=== PATIENT | male | born 1940 | race Caucasian/White ===

== ENCOUNTER 2018-02-07 11:06 | Inpatient (IN) | payer MEDICARE, OTHER ==
[2018-02-07 12:08] LABS: HEMATOCRIT 43.5 % (42.0-52.0); HEMOGLOBIN 14.8 g/dl (13.5-17.5); MEAN CORPUSCULAR HEMOGLOBIN 33.3 pg (27.0-33.0); MEAN CORPUSCULAR VOLUME 97.8 fl (80.0-96.0); PLATELET COUNT, AUTOMATED 180 10^3/uL (150-450); RED BLOOD COUNT 4.45 10^6/uL (4.30-6.10); RED CELL DISTRIBUTION WIDTH 13.1 % (11.5-14.5); WHITE BLOOD COUNT 8.5 10^3/uL (4.0-10.0)
[2018-02-07 12:38] LABS: AMPHETAMINES LEVEL URINE NEGATIVE (NEGATIVE); BARBITURATES URINE NEGATIVE (NEGATIVE); BENZODIAZEPINES URINE NEGATIVE (NEGATIVE); CANNABINOIDS URINE NEGATIVE (NEGATIVE); COCAINE METABOLITE URINE NEGATIVE (NEGATIVE); METHADONE URINE NEGATIVE (NEGATIVE); OPIATES URINE NEGATIVE (NEGATIVE); PHENCYCLIDINE URINE NEGATIVE (NEGATIVE)
[2018-02-07 12:56] LABS: ANION GAP 7 MEQ/L (8-16); BLOOD UREA NITROGEN 19 MG/DL (7-18); CALCIUM LEVEL 8.7 MG/DL (8.8-10.2); CARBON DIOXIDE LEVEL 27 MEQ/L (21-32); CHLORIDE LEVEL 99 MEQ/L (98-107); CREATININE FOR GFR 0.85 MG/DL (0.70-1.30); GLOMERULAR FILTRATION RATE > 60.0 (>42); GLUCOSE, FASTING 113 MG/DL (70-100); POTASSIUM SERUM 4.2 MEQ/L (3.5-5.1); SODIUM LEVEL 133 MEQ/L (136-145)
[2018-02-07 12:57] LABS: ALBUMIN 3.8 GM/DL (3.2-5.2); ALKALINE PHOSPHATASE 97 U/L (45-117); ALT/SGPT 42 U/L (12-78); AST/SGOT 31 U/L (7-37); BILIRUBIN,DIRECT 0.2 MG/DL (0.0-0.2); BILIRUBIN,TOTAL 0.7 MG/DL (0.2-1.0); TOTAL PROTEIN 6.9 GM/DL (6.4-8.2)
[2018-02-07 12:58] LABS: ACETAMINOPHEN LEVEL < 2.0 UG/ML (10.0-30.0); ALBUMIN/GLOBULIN RATIO 1.23 (1.00-1.93); ETHYL ALCOHOL (ETHANOL) < 0.003 % (0.000-0.010); SALICYLATE LEVEL < 1.7 MG/DL (5.0-30.0)
[2018-02-07] MEDS: LORazepam 2 MG TAB PO (18:47)
[2018-02-07] MEDS: ATORVASTATIN 20 MG TAB PO (21:00)
[2018-02-07] MEDS: METOPROLOL SUCC (TopROL XL) 50MG **XL** TAB PO (21:00)
[2018-02-07] MEDS ORDERED: MOM 30ML SUSPENSION UDC PO (21:45)
[2018-02-07] MEDS ORDERED: MAALOX 30 ML SUSP *UDC PO (21:45)
[2018-02-07] MEDS: ASPIRIN 325 MG TAB PO (21:45)
[2018-02-07] MEDS ORDERED: NITROGLYCERIN 0.4 MG SUBL TABLET SL (21:45)
[2018-02-07] MEDS ORDERED: ACETAMINOPHEN TAB 650MG DOSE (2X325MG) PO (21:45)
[2018-02-08] MEDS: INFLUENZA VIRUS VACCINE HIGH DOSE 0.5 ML SYRINGE (90662) IM (09:57)
[2018-02-08 11:58] LABS: KETONE, URINE AUTO RFX NEGATIVE (NEGATIVE); LEUKOCYTE ESTERASE UR AUTO RFX NEGATIVE (NEGATIVE); MUCUS, URINE RFX SMALL (NEGATIVE); NITRITE, URINE AUTO RFX NEGATIVE (NEGATIVE); RBC, URINE AUTO RFX 0 /HPF (0-3); SPECIFIC GRAVITY UR AUTO RFX 1.014 (1.002-1.035); SQUAM EPITHELIAL CELL UR AURFX 1 /HPF (0-6); WBC, URINE AUTO RFX 1 /HPF (0-3)
[2018-02-08] MEDS: ATORVASTATIN 20 MG TAB PO (21:47)
[2018-02-08] MEDS: QUEtiapine FUMARATE 50 MG TAB PO (21:47)
[2018-02-08] MEDS: METOPROLOL SUCC (TopROL XL) 50MG **XL** TAB PO (22:18)
[2018-02-09 08:22] LABS: ANION GAP 6 MEQ/L (8-16); BLOOD UREA NITROGEN 13 MG/DL (7-18); CALCIUM LEVEL 9.2 MG/DL (8.8-10.2); CARBON DIOXIDE LEVEL 27 MEQ/L (21-32); CHLORIDE LEVEL 102 MEQ/L (98-107); CREATININE FOR GFR 0.85 MG/DL (0.70-1.30); GLOMERULAR FILTRATION RATE > 60.0 (>42); GLUCOSE, FASTING 110 MG/DL (70-100); POTASSIUM SERUM 4.2 MEQ/L (3.5-5.1); SODIUM LEVEL 135 MEQ/L (136-145)
[2018-02-09] MEDS: QUEtiapine FUMARATE 100 MG TAB PO (21:38)
[2018-02-09] MEDS: ATORVASTATIN 20 MG TAB PO (21:38)
[2018-02-09] MEDS: METOPROLOL SUCC (TopROL XL) 50MG **XL** TAB PO (21:39)
[2018-02-10 08:55] LABS: ANION GAP 8 MEQ/L (8-16); BLOOD UREA NITROGEN 13 MG/DL (7-18); CALCIUM LEVEL 9.2 MG/DL (8.8-10.2); CARBON DIOXIDE LEVEL 27 MEQ/L (21-32); CHLORIDE LEVEL 98 MEQ/L (98-107); CREATININE FOR GFR 0.83 MG/DL (0.70-1.30); GLOMERULAR FILTRATION RATE > 60.0 (>42); GLUCOSE, FASTING 119 MG/DL (70-100); SODIUM LEVEL 133 MEQ/L (136-145)
[2018-02-10 14:44] LABS: VITAMIN B12 LEVEL 404 PG/ML (247-911)
[2018-02-10 14:44] LABS: FOLATE 8.4 NG/ML (>5.4)
[2018-02-10] MEDS: QUEtiapine FUMARATE 100 MG TAB PO (21:05)
[2018-02-10] MEDS: ATORVASTATIN 20 MG TAB PO (21:05)
[2018-02-10] MEDS: METOPROLOL SUCC (TopROL XL) 50MG **XL** TAB PO (21:06)
[2018-02-11] MEDS: QUEtiapine FUMARATE 50 MG TAB PO (09:02)
[2018-02-11] MEDS: ATORVASTATIN 20 MG TAB PO (21:05)
[2018-02-11] MEDS: METOPROLOL SUCC (TopROL XL) 50MG **XL** TAB PO (21:08)
[2018-02-11] MEDS: PILL CRUSHER/CUTTER 1 EACH XX (21:08)
[2018-02-12 00:06] LABS: Lyme Disease IgG/IgM Antibodie <0.91 ISR (0.00-0.90); Lyme Disease IgM Ab Quantitati <0.80 index (0.00-0.79)
[2018-02-12] MEDS: traZODone 50 MG TAB PO ×2 (01:16→21:35)
[2018-02-12] MEDS: ATORVASTATIN 20 MG TAB PO (21:35)
[2018-02-12] MEDS: METOPROLOL SUCC (TopROL XL) 50MG **XL** TAB PO (21:35)
[2018-02-12] MEDS: PILL CRUSHER/CUTTER 1 EACH XX (21:37)
[2018-02-13] MEDS: PILL CRUSHER/CUTTER 1 EACH XX (21:10)
[2018-02-13] MEDS: ATORVASTATIN 20 MG TAB PO (21:11)
[2018-02-13] MEDS: METOPROLOL SUCC (TopROL XL) 50MG **XL** TAB PO (21:11)
[2018-02-13] MEDS: traZODone 50 MG TAB PO (21:12)
[2018-02-14] MEDS: LORazepam 1 MG TAB PO (20:49)
[2018-02-14] MEDS: ATORVASTATIN 20 MG TAB PO (20:49)
[2018-02-14] MEDS: QUEtiapine FUMARATE 100 MG TAB PO (20:49)
[2018-02-14] MEDS: METOPROLOL SUCC (TopROL XL) 50MG **XL** TAB PO (20:50)
[2018-02-14] MEDS: traZODone 50 MG TAB PO (20:50)
[2018-02-15 11:36] LABS: KETONE, URINE AUTO RFX NEGATIVE (NEGATIVE); MUCUS, URINE RFX SMALL (NEGATIVE); NITRITE, URINE AUTO RFX NEGATIVE (NEGATIVE); RBC, URINE AUTO RFX 84 /HPF (0-3); SPECIFIC GRAVITY UR AUTO RFX 1.016 (1.002-1.035); SQUAM EPITHELIAL CELL UR AURFX 0 /HPF (0-6)
[2018-02-15 11:39] LABS: LEUKOCYTE ESTERASE UR AUTO RFX 3+ (NEGATIVE); WBC, URINE AUTO RFX TNTC /HPF (0-3)
[2018-02-15] MEDS: QUEtiapine FUMARATE 100 MG TAB PO (20:46)
[2018-02-15] MEDS: traZODone 50 MG TAB PO (20:46)
[2018-02-15] MEDS: METOPROLOL SUCC (TopROL XL) 50MG **XL** TAB PO (20:46)
[2018-02-15] MEDS: ATORVASTATIN 20 MG TAB PO (20:47)
[2018-02-16] MEDS: METOPROLOL SUCC (TopROL XL) 50MG **XL** TAB PO (21:20)
[2018-02-16] MEDS: ATORVASTATIN 20 MG TAB PO (21:21)
[2018-02-16] MEDS: QUEtiapine FUMARATE 100 MG TAB PO (21:21)
[2018-02-16] MEDS: CEFDINIR 300 MG CAP (OMNICEF) PO (21:21)
[2018-02-17] MEDS: CEFDINIR 300 MG CAP (OMNICEF) PO ×2 (09:34→20:46)
[2018-02-17] MEDS: QUEtiapine FUMARATE 100 MG TAB PO (20:45)
[2018-02-17] MEDS: METOPROLOL SUCC (TopROL XL) 50MG **XL** TAB PO (20:46)
[2018-02-17] MEDS: ATORVASTATIN 20 MG TAB PO (20:46)
[2018-02-18] MEDS: CEFDINIR 300 MG CAP (OMNICEF) PO (08:08)
== END 2018-02-18 14:00 | disposition home or self-care (01) | DRG 885 ==
LOC: M ED 11:06 → M ED INP 21:38 → M PSY 22:44
DX: F31.2 Bipolar disorder, current episode manic severe with psychotic features (principal); E87.1 Hypo-osmolality and hyponatremia; N39.0 Urinary tract infection, site not specified; I10 Essential (primary) hypertension; B96.1 Klebsiella pneumoniae [K. pneumoniae] as the cause of diseases classified elsewhere; I25.10 Atherosclerotic heart disease of native coronary artery without angina pectoris; E78.5 Hyperlipidemia, unspecified; Z95.5 Presence of coronary angioplasty implant and graft; Z79.82 Long term (current) use of aspirin; Z79.899 Other long term (current) drug therapy

== ENCOUNTER → 2018-06-15 | Outpatient (CLI) | payer MEDICARE, OTHER ==
[~2018-06-15] MED LIST: ASPI1TAB21 PO; ASPI81TA85 PO; ATOR80TA59 PO; CEFD300CAP PO; DIPH25CA PO; METO1TAB7 PO; NITR4TASL SL; QUET1TAB8 PO; TRAZO50TA PO
[2018-06-15 09:49] LABS: HEMATOCRIT 42.9 % (42.0-52.0); HEMOGLOBIN 14.8 g/dl (13.5-17.5); MEAN CORPUSCULAR HEMOGLOBIN 32.8 pg (27.0-33.0); MEAN CORPUSCULAR HGB CONC 34.5 g/dl (32.0-36.5); MEAN CORPUSCULAR VOLUME 95.1 fl (80.0-96.0); PLATELET COUNT, AUTOMATED 145 10^3/uL (150-450); RED BLOOD COUNT 4.51 10^6/uL (4.30-6.10); WHITE BLOOD COUNT 7.5 10^3/uL (4.0-10.0)
[2018-06-15 10:01] LABS: INR 0.98; PROTHROMBIN TIME 13.1 SECONDS (12.1-14.4)
--- NOTE | 2018-06-15 10:03 | REP ---
Chest two views HISTORY: Right knee arthritis Comparison: 01/18/2012 The lungs are clear. The heart is normal in size. The pulmonary vasculature is normal in appearance. The bony structure is intact. IMPRESSION: No acute disease. Electronically Signed by Estrada Aguilar MD 06/15/2018 09:56 A
[2018-06-15 10:18] LABS: ALBUMIN 3.9 GM/DL (3.2-5.2); ALT/SGPT 28 U/L (12-78); BILIRUBIN,TOTAL 0.9 MG/DL (0.2-1.0); BLOOD UREA NITROGEN 19 MG/DL (7-18); CALCIUM LEVEL 8.9 MG/DL (8.8-10.2); CARBON DIOXIDE LEVEL 28 MEQ/L (21-32); CHLORIDE LEVEL 106 MEQ/L (98-107); GLOMERULAR FILTRATION RATE > 60.0 (>42); GLUCOSE, FASTING 108 MG/DL (70-100); POTASSIUM SERUM 4.3 MEQ/L (3.5-5.1); SODIUM LEVEL 139 MEQ/L (136-145); TOTAL PROTEIN 6.6 GM/DL (6.4-8.2)
[2018-06-15 10:53] LABS: ERYTHROCYTE SEDIMENTATION RATE 6 mm/hr (0-20)
--- NOTE | 2018-06-16 11:53 | ECGEPIP ---
Stationary ECG Study [facility] Test Date: 2018-06-15 Pat Name: JUAN M YUAN Department: Room: - Gender: M Fisher Trammel Net: oly : 1940 Requested By: Raquel Jay @ [facility] Order Number: [id number] Reading MD: Gigi De Leon Measurements Intervals [place] Rate: 68 P: -2 LA: 134 QRS: 16 QRSD: 111 T: -19 QT: 401 QTc: 426 Interpretive Statements SINUS RHYTHM MODERATE INTRAVENTRICULAR CONDUCTION DELAY Inferior Q waves previously noted on 02-08-18 tracing Electronically Signed On 06-16-2018 11:52:30 EST by Gigi De Leon
--- NOTE | 2018-06-17 18:04 | HPE ---
DATE OF ADMISSION: 06/28/2018 CHIEF COMPLAINT: Right knee pain. HISTORY OF PRESENT ILLNESS: Charles is a pleasant 77-year-old male with progressively worsening right knee pain and stiffness. He has failed to improve with conservative treatment. He has elected for surgery for his continued symptoms. He has pain with weightbearing activities and his activities of daily living. X-rays of his knee are notable for advanced osteoarthritis of the right knee joint. He has consented for a right total knee arthroplasty by Dr. Pierre Hood. Medical optimization was performed by Dr. Grace. ALLERGIES: No known allergies. CURRENT MEDICATIONS: - atorvastatin 80 mg once a day - metoprolol 50 mg once per day - baby aspirin 81 mg baby once per day - Seroquel 100 mg a day - trazodone 50 mg at bedtime as needed - Nitrostat 0.40 mg when needed - Flonase [id number] as needed PAST MEDICAL HISTORY: Includes: 1. Coronary artery disease. 2. Hyperlipidemia. 3. Anxiety and depression. 4. Seasonal allergies. PAST SURGICAL HISTORY: Includes: 1. Left and right knee arthroscopies. 2. Left leg vein stripping. SOCIAL HISTORY: This gentleman is retired. Does not smoke. Rarely drinks. FAMILY HISTORY: Noncontributory. REVIEW OF SYSTEMS: This patient denies chest pain, heart palpitations, cough, wheezing, difficulty breathing, and shortness of breath. He denies abdominal pain, nausea, vomiting, diarrhea, or constipation. He denies recent upper respiratory infection or urinary tract infection symptoms. He does complain of persistent pain in his right knee. PHYSICAL EXAMINATION: GENERAL: He is a well-nourished, a well-developed in no acute distress, alert male patient. He walks with a moderate limp favoring his right lower extremity. Does not use assistive devices. VITAL SIGNS: He is 70-3/4 inches tall, weighs 254 pounds with a temperature of 97.6, blood pressure 121/77, pulse of 61, respirations of 16. NECK: Supple without adenopathy or jugular venous distension. There were no carotid bruits appreciated upon auscultation. LUNGS: Clear to auscultation without rales or wheeze throughout. HEART: Regular rate and rhythm. ABDOMEN: Bowel sounds were present. EXTREMITIES: Examination of the knee revealed intact skin. He had decreased range of motion secondary to pain and stiffness. The limb was neurovascularly intact. LABORATORY DATA: EKG showed sinus rhythm at 68 beats per minute. Chest x-ray showed no acute cardiopulmonary disease processes. Protime 13.1, INR 0.98. Glucose 108, BUN 19, creatinine 0.90, sodium 139, potassium 4.3. CBC showed a platelet count of 145, otherwise within normal limits. Sedimentation rate was 6. IMPRESSION: Symptomatic osteoarthritis of the right knee joint. PLAN: Consented for a right total knee arthroplasty by Dr. Pierre Hood.
== END ==
LOC: M LAB 09:08
PROVIDERS: ATTEND Orthopaedic Surgery
DX: Z01.818 Encounter for other preprocedural examination (principal); M17.11 Unilateral primary osteoarthritis, right knee; Z79.899 Other long term (current) drug therapy

== ENCOUNTER 2018-06-28 05:40 | Inpatient (IN) | payer MEDICARE, OTHER ==
--- NOTE | 2018-06-17 18:04 | HPE ---
DATE OF ADMISSION: 06/28/2018 CHIEF COMPLAINT: Right knee pain. HISTORY OF PRESENT ILLNESS: Charles is a pleasant 77-year-old male with progressively worsening right knee pain and stiffness. He has failed to improve with conservative treatment. He has elected for surgery for his continued symptoms. He has pain with weightbearing activities and his activities of daily living. X-rays of his knee are notable for advanced osteoarthritis of the right knee joint. He has consented for a right total knee arthroplasty by Dr. Pierre Hood. Medical optimization was performed by Dr. Grace. ALLERGIES: No known allergies. CURRENT MEDICATIONS: - atorvastatin 80 mg once a day - metoprolol 50 mg once per day - baby aspirin 81 mg baby once per day - Seroquel 100 mg a day - trazodone 50 mg at bedtime as needed - Nitrostat 0.40 mg when needed - Flonase [id number] as needed PAST MEDICAL HISTORY: Includes: 1. Coronary artery disease. 2. Hyperlipidemia. 3. Anxiety and depression. 4. Seasonal allergies. PAST SURGICAL HISTORY: Includes: 1. Left and right knee arthroscopies. 2. Left leg vein stripping. SOCIAL HISTORY: This gentleman is retired. Does not smoke. Rarely drinks. FAMILY HISTORY: Noncontributory. REVIEW OF SYSTEMS: This patient denies chest pain, heart palpitations, cough, wheezing, difficulty breathing, and shortness of breath. He denies abdominal pain, nausea, vomiting, diarrhea, or constipation. He denies recent upper respiratory infection or urinary tract infection symptoms. He does complain of persistent pain in his right knee. PHYSICAL EXAMINATION: GENERAL: He is a well-nourished, a well-developed in no acute distress, alert male patient. He walks with a moderate limp favoring his right lower extremity. Does not use assistive devices. VITAL SIGNS: He is 70-3/4 inches tall, weighs 254 pounds with a temperature of 97.6, blood pressure 121/77, pulse of 61, respirations of 16. NECK: Supple without adenopathy or jugular venous distension. There were no carotid bruits appreciated upon auscultation. LUNGS: Clear to auscultation without rales or wheeze throughout. HEART: Regular rate and rhythm. ABDOMEN: Bowel sounds were present. EXTREMITIES: Examination of the knee revealed intact skin. He had decreased range of motion secondary to pain and stiffness. The limb was neurovascularly intact. LABORATORY DATA: EKG showed sinus rhythm at 68 beats per minute. Chest x-ray showed no acute cardiopulmonary disease processes. Protime 13.1, INR 0.98. Glucose 108, BUN 19, creatinine 0.90, sodium 139, potassium 4.3. CBC showed a platelet count of 145, otherwise within normal limits. Sedimentation rate was 6. IMPRESSION: Symptomatic osteoarthritis of the right knee joint. PLAN: Consented for a right total knee arthroplasty by Dr. Pierre Hood.
[2018-06-28] VITALS (8 sets, daily range): BP systolic 116–147; BP diastolic 62–82
[~2018-06-28] VITALS: Ht 180.3 cm; Wt 113.8 kg
[2018-06-28] MEDS ORDERED: LR 1,000 ML IV SCH ×2 (06:00→10:45)
[2018-06-28] MEDS ORDERED: ACETAMINOPHEN 500 MG TAB PO ONE (06:00)
[2018-06-28] MEDS ORDERED: fentaNYL 100 MCG/2 ML INJECTION (J3010) As Ordered ONE ×2 (06:35→07:49)
[2018-06-28] MEDS ORDERED: MIDAZOLAM INJ 2 MG/2 ML VIAL (J2250) As Ordered ONE ×2 (06:35→07:49)
[2018-06-28] MEDS ORDERED: EPINEPHrine INJ 1 MG/ML 1ML AMP As Ordered ONE (06:54)
[2018-06-28] MEDS ORDERED: BUPIVACAINE LIPOSOME/PF 1.3% 20ML VIAL (13.3MG/ML)(EXPAREL)(C9290 PER1MG) As Ordered ONE (06:54)
[2018-06-28] MEDS ORDERED: TRANEXAMIC ACID 100 MG/ML 10ML VIAL As Ordered ONE (06:54)
[2018-06-28] MEDS ORDERED: BUPIVACAINE HCL 0.25% 30 ML VIAL As Ordered ONE (06:54)
[2018-06-28] MEDS ORDERED: ceFAZolin 1GM INJ (J0690 PER 500MG) As Ordered ONE ×2 (06:54→07:02)
[2018-06-28] MEDS ORDERED: fentaNYL 100 MCG/2 ML INJECTION (J3010) IV ONE (07:45)
[2018-06-28] MEDS ORDERED: MIDAZOLAM INJ 2 MG/2 ML VIAL (J2250) IV ONE (07:45)
[2018-06-28] MEDS ORDERED: PHENYLephrine HCL 500 MCG/5 ML (100MCG/ML) SYRINGE (J2370) As Ordered ONE ×2 (07:49→08:09)
[2018-06-28] MEDS ORDERED: PROPOFOL 200 MG/20 ML VIAL As Ordered ONE ×3 (07:49→09:28)
[2018-06-28] MEDS ORDERED: PHENYLEPHRINE INJ 10MG/ML VIAL (J2370) As Ordered ONE (08:09)
[2018-06-28] MEDS ORDERED: BUPIVACAINE/DEXTROSE 0.75% 2 ML AMP As Ordered ONE (08:29)
[2018-06-28] MEDS: LR 1,000 ML IV SCH ×2 (10:30→23:00)
[2018-06-28] MEDS ORDERED: MORPHINE 4 MG/ML 1ML VIAL/SYRINGE (J2270) IV PRN (10:45)
[2018-06-28] MEDS ORDERED: ONDANSETRON 4MG/2ML VIAL (J2405) IV PRN (10:45)
[2018-06-28] MEDS ORDERED: fentaNYL 100 MCG/2 ML INJECTION (J3010) IV PRN (10:45)
[2018-06-28] MEDS ORDERED: NORCO, ANEXSIA 5/325MG TABLET (HYDROcodone/ACETAMINOPHEN) PO PRN (10:45)
[2018-06-28] MEDS ORDERED: PERCOCET 5MG/325MG TAB PO PRN (10:45)
[2018-06-28] MEDS ORDERED: ACETAMINOPHEN TAB 650MG DOSE (2X325MG) PO PRN (10:45)
[2018-06-28] MEDS ORDERED: FLEET ENEMA PR PRN (10:45)
[2018-06-28] MEDS ORDERED: HYDROMORPHONE HCL 0.5 MG/ 0.5 ML SYRINGE (J1170 PER 1) IV PRN (10:45)
--- NOTE | 2018-06-28 10:50 | RO ---
DATE OF PROCEDURE: 06/28/2018 PREPROCEDURE DIAGNOSIS: Tricompartmental degenerative arthritis of the right knee. POSTPROCEDURE DIAGNOSIS: Tricompartmental degenerative arthritis of the right knee. PROCEDURE: Right total knee arthroplasty using a size 7 cruciate retaining femoral component with a size 8 tibial tray with a 55 rotated platform polyethylene insert and a 38 mm polyethylene button. All components were cemented. Prostheses made by [employer]. It was an [employer] knee. SURGEON: Dr. Raquel Hood HAND SILVERING SUPERVISOR: Mr. Miller Iraheta. ANESTHESIA: Spinal with right femoral nerve block. COMPLICATIONS: None. ESTIMATED BLOOD LOSS: 50 mL. TOURNIQUET: Total tourniquet time was about 1 hour and 35 minutes. DESCRIPTION OF PROCEDURE: Antibiotics were given intravenously preoperatively and then successful right femoral nerve block and then a spinal anesthetic was induced. The tourniquet was placed on the right upper thigh and not inflated. Right lower extremity was carefully prepped and then draped in the usual sterile fashion. The leg was elevated. Then after an appropriate time-out, the tourniquet was inflated. A longitudinal incision was then made for a medial parapatellar approach to the knee. Bovie cautery was used to coagulate the crossing vessels. We minimally dissected around the proximal medial portion of the tibia because of the valgus knee and we dissected around the lateral proximal tibia. We everted the patella, flexed the knees and then placed the drill down the center of the femoral canal. The lock was set at 5 degree valgus, cut at 9 mm resection level for a right knee. Distal femoral cut performed. However, we just barely took any off the lateral, thus I took an additional 2 mm . The AP size of the jig measured for a size 7, 3 degrees was dialed into position. We made sure that the rotation was appropriate by looking at white side of the line and the epicondylar axis. The 4-in-1 block was then applied and secured and the anterior and posterior chamfer cuts performed. We then exposed the proximal tibia, used extramedullary alignment jig to estimate being parallel to the mechanical axis and referenced initially off the good side of the medial tibial condyle. It was quite dished laterally. The block was set in position secondary check with extramedullary jenny confirmed. We appeared to be parallel to the mechanical axis. Then I cut off the top of the block because it appeared to be taking a bit excess of the proximal tibia. Thus that osteotomy was completed. We then used the laminar spreaders to expose to the placed medially and performed a completion lateral meniscectomy and debridement of posterolateral osteophytes and placed laminar cardiology associate laterally and performed a completion medial meniscectomy and debridement of the posterior medial osteophytes. We then placed a spacer block. It was quite tight in extension predominantly more than flexion. Thus, I felt more of the distal femur was necessary to be resected. So I re-applied the distal femoral block and took an additional 4 mm. This was quite excessive and then re-applied the 4-in-1 block and performed the chamfer cuts as well. The notchplasty was redone as well using the template. This improved, however, it was still tight now globally both in flexion and in extension. Thus, I took an additional 2 mm from the tibia. This allowed us to get the spacer blocks in place. The 6 was a bit snug, we felt 5 seemed to be right. I did do additional release around the proximal lateral tibial plateau to help balance some asymmetrical lateral tightness and this seemed to balance nicely. I then exposed the proximal tibia and sized for a #8 tibial tray, which was pinned into position followed by the reamer and broach. Trial polyethylene placed. The trial femoral component was placed. The thigh fit the best in terms of the spacer block to allow the femoral component to seat. I did have to release a little bit of the posterior cruciate ligament (PCL). We brought the knee into extension. He had good stability and improved alignment out of his valgus aligned lower leg. We everted the patella, performed patellar osteotomy sized for a 38 button. Lug holes are drilled. Patellofemoral tracking was anatomic. We drilled the lug holes for the femur and removed all the trial components. I did release the tourniquet as we were doing the patellar osteotomy because the tourniquet had been up at this point about an hour and 10 minutes. We again copiously irrigated out the knee joint. Instill Exparel in the periosteal tissues of the distal femur and the proximal tibia. Then elevated the leg as Mr. Iraheta mixed the cement on the back table. The tourniquet was re-inflated. I copiously pulsatile lavaged and irrigated out the knee joint and preparing the bony surfaces for cementing. Mr. Iraheta was also critical for the success of this very difficult operating requiring multiple cuts and re-evaluation of our alignment a long the way, helped close the wound, help prepare the patient amongst many other tasks. We then cemented the tibial tray, removed the excess cement. Placed the polyethylene, cemented the femoral component and removed excess cement. Brought the knee into extension and cemented the patellar button. Removed excess cement and held the knee into extension with a clamp until the cement hardened. As we were awaiting we copiously irrigated out the knee joint once again and then placed tranexamic acid in the knee. We then began closing the apex of the arthrotomy with a two #1 PDS sutures. The medial parapatellar area was closed with a single #1 PDS suture and a #1 double-arm Stratafix used to close the capsule and the tourniquet was release. We irrigated again between layers. Closed the deep subdermal tissues with interrupted #2-0 PDS sutures. Skin was closed with drake and covered with a sterile dry Optifoam and dry sterile bulky dressing. He was then transferred to the recovery room in stable condition. There no intraoperative complications.
--- NOTE | 2018-06-28 10:50 | REP ---
Right knee series: Two views. History: Postop. Findings: The patient is status post right knee arthroplasty. Components of the arthroplasty are well aligned with respect to their [place] bones and with respect to each other. Anterior skin drake are seen. Interarticular and periarticular postoperative emphysema seen. Vascular calcification is also noted. Impression: Status post right knee arthroplasty. Electronically Signed by Armin Pierce MD 06/28/2018 10:41 A
[2018-06-28] MEDS ORDERED: traZODone 50 MG TAB PO PRN (11:30)
[2018-06-28] MEDS: SENOKOT S TAB PO SCH ×2 (13:05→21:24)
[2018-06-28] MEDS: NORCO, ANEXSIA 5/325MG TABLET (HYDROcodone/ACETAMINOPHEN) PO PRN ×2 (13:06→20:15)
--- NOTE | 2018-06-28 17:34 | CR ---
DATE OF CONSULTATION: 06/28/2018 CONSULTATION REPORT FOR: Dr. Pierre Hood PRIMARY CARE PROVIDER: Dr. Raymond Grace REASON FOR CONSULTATION: Medical management. This is a 77-year-old male patient with underlying medical history of coronary artery disease with stents, last stent placed 2010, dyslipidemia, anxiety, depression, seasonal allergy, admitted under orthopedic service for elective right total knee replacement by Dr. Pierre Hood. Denies any chest pain, pressure or discomfort. The patient is status post surgery. Denies any chest pain, pressure or discomfort. Currently in recovery. Denies history of sleep apnea. GAS PLUMBER: Dr. Black ALLERGIES: No known drug allergies. PAST MEDICAL HISTORY: 1. Coronary artery disease with percutaneous coronary intervention (PCI) times three, last PCI in 2010. 2. Dyslipidemia. 3. Anxiety. 4. Depression. 5. Seasonal allergy. PAST SURGICAL HISTORY: 1. Left and right knee arthroscopy. 2. Left leg vein stripping. 3. Percutaneous coronary intervention (PCI) times three. SOCIAL HISTORY: The patient retired. Does not smoke. Rarely drinks about once or twice a month, two drinks maximum at a restaurant. FAMILY HISTORY: Noncontributory. REVIEW OF SYSTEMS: Reported right knee stiffness and pain prior to surgery. All other review of systems are negative. HOME MEDICATIONS: - aspirin 81 mg by mouth at bedtime - Lipitor 80 mg by mouth at bedtime - metoprolol 50 mg by mouth at bedtime - sublingual nitroglycerin 0.4 mg as needed - Seroquel 100 mg by mouth at bedtime - trazodone 50 mg by mouth at bedtime as needed PHYSICAL EXAMINATION: VITAL SIGNS: Temperature 97.5, pulse 84, respiratory rate 18, blood pressure 136/67, pulse oximetry 97% on room air. GENERAL: The patient alert, comfortable in no acute distress. HEENT: Normocephalic, atraumatic. PULMONARY: Bilaterally clear. CARDIAC: Systolic murmur, 2/6. ABDOMEN: Soft, nontender. Positive bowel sounds. EXTREMITIES: Able to move bilateral lower extremities. Dorsalis pedis (DP), posterior tibial (PT) pulses intact. Right knee IVANA wrap in place. Sensation to bilateral lower extremities intact. ASSESSMENT AND PLAN: This is a 77-year-old male patient with underlying medical history of coronary artery disease, dyslipidemia, anxiety, depression, seasonal allergy, history of percutaneous coronary intervention (PCI) with stents 2010, admitted under orthopedics with right total knee arthroplasty. 1. Osteoarthritis, status post right total knee arthroplasty. Pain regimen, deep vein thrombosis (DVT) prophylaxis, activity status, weightbearing status as per orthopedics. The patient on Xarelto for DVT prophylaxis. Given the patient's history of coronary artery disease with PCI and stents, recommend continuing baby aspirin and statin. Bowel regimen has been prescribed. 2. Coronary artery disease. Continue aspirin and statin. Monitor blood pressure. Continue beta blockers. 3. Depression and anxiety. Continue current medication. 4. Dyslipidemia. Continue statin. 5. DVT prophylaxis. The patient on Xarelto as per orthopedics. DISPOSITION: As per primary team.
[2018-06-28] MEDS ORDERED: QUEtiapine FUMARATE 100 MG TAB PO SCH (21:00)
[2018-06-28] MEDS ORDERED: ASPIRIN 81 MG ENTERIC TAB PO SCH (21:00)
[2018-06-28] MEDS ORDERED: ATORVASTATIN 20 MG TAB PO SCH (21:00)
[2018-06-28] MEDS ORDERED: METOPROLOL SUCC (TopROL XL) 50MG **XL** TAB PO SCH (21:00)
[2018-06-29 02:00] VITALS: BP 136/75
[2018-06-29] MEDS: NORCO, ANEXSIA 5/325MG TABLET (HYDROcodone/ACETAMINOPHEN) PO PRN ×3 (02:43→11:53)
[2018-06-29 06:00] VITALS: BP 113/62
[2018-06-29] MEDS ORDERED: XARE10TA PO (06:54)
[2018-06-29] MEDS ORDERED: HYDR-3713 PO (06:54)
[2018-06-29 07:00] LABS: HEMATOCRIT 35.5 % (42.0-52.0); HEMOGLOBIN 12.3 g/dl (13.5-17.5); MEAN CORPUSCULAR HEMOGLOBIN 32.5 pg (27.0-33.0); MEAN CORPUSCULAR HGB CONC 34.6 g/dl (32.0-36.5); MEAN CORPUSCULAR VOLUME 93.9 fl (80.0-96.0); PLATELET COUNT, AUTOMATED 127 10^3/uL (150-450); RED BLOOD COUNT 3.78 10^6/uL (4.30-6.10); WHITE BLOOD COUNT 13.2 10^3/uL (4.0-10.0)
[2018-06-29 07:23] LABS: BLOOD UREA NITROGEN 21 MG/DL (7-18); CALCIUM LEVEL 8.4 MG/DL (8.8-10.2); CARBON DIOXIDE LEVEL 26 MEQ/L (21-32); CHLORIDE LEVEL 104 MEQ/L (98-107); CREATININE FOR GFR 0.96 MG/DL (0.70-1.30); GLOMERULAR FILTRATION RATE > 60.0 (>42); GLUCOSE, FASTING 118 MG/DL (70-100); MAGNESIUM LEVEL 1.9 MG/DL (1.8-2.4); POTASSIUM SERUM 4.3 MEQ/L (3.5-5.1); SODIUM LEVEL 139 MEQ/L (136-145)
[2018-06-29 07:25] LABS: INR 1.11; PROTHROMBIN TIME 14.5 SECONDS (12.1-14.4)
[2018-06-29] MEDS ORDERED: ASPI81TA85 PO (08:05)
[2018-06-29] MEDS ORDERED: SENN1TAB2 PO (08:19)
[2018-06-29] MEDS: SENOKOT S TAB PO SCH (08:31)
[2018-06-29] MEDS ORDERED: MIRALAX *UNIT DOSE* 17GM PACKET PO SCH (09:00)
[2018-06-29] MEDS ORDERED: MOM 30ML SUSPENSION UDC PO SCH (09:00)
[2018-06-29] MEDS ORDERED: LIDOCAINE 1% MDV 20ML VIAL ONE (11:54)
[2018-06-29] MEDS ORDERED: ROPIvacaine 0.5% 30 ML INJECTION (J2795 PER 1MG) ONE (11:54)
[2018-06-29] MEDS ORDERED: dexameTHASONE 10 MG/1 ML VIAL PRES.FREE (J1100) ONE (11:54)
--- NOTE | 2018-06-29 15:22 | IPNPDOC ---
Text Note Date of Service The patient was seen on 06/29/18. NOTE No acute events overnight. Ambulate with walker. Denied chest pain, pressure or discomfort. Denied sob. GENERAL: The patient alert, comfortable in no acute distress. HEENT: Normocephalic, atraumatic. PULMONARY: Bilaterally clear. CARDIAC: Systolic murmur, 2/6. ABDOMEN: Soft, nontender. Positive bowel sounds. EXTREMITIES: Able to move bilateral lower extremities. Dorsalis pedis (DP), posterior tibial (PT) pulses intact. Sensation to bilateral lower extremities intact. Mild blood on dressing. ASSESSMENT AND PLAN: This is a 77-year-old male patient with underlying medical history of coronary artery disease, dyslipidemia, anxiety, depression, seasonal allergy, history of percutaneous coronary intervention (PCI) with stents 2010, admitted under orthopedics with right total knee arthroplasty. 1. Osteoarthritis, status post right total knee arthroplasty. Pain regimen, deep vein thrombosis (DVT) prophylaxis, activity status, weightbearing status as per orthopedics. The patient on Xarelto for DVT prophylaxis. Given the patient's history of coronary artery disease with PCI and stents, recommend continuing baby aspirin and statin. Bowel regimen has been prescribed. 2. Coronary artery disease. Continue aspirin and statin. Monitor blood pressure. Continue beta blockers. 3. Depression and anxiety. Continue current medication. 4. Dyslipidemia. Continue statin. 5. DVT prophylaxis. The patient on Xarelto as per orthopedics. DISPOSITION: As per primary team. likely dc today VS,Fishbone, I+O VS, Fishbone, I+O Laboratory Tests 06/29/18 06:30 Red Blood Count 3.78 L, Mean Corpuscular Volume 93.9, Mean Corpuscular Hemoglobin 32.5, Mean Corpuscular Hemoglobin Concent 34.6, Red Cell Distribution Width 12.7, Calcium Level 8.4 L Vital Signs Date Time Temp Pulse Resp B/P (MAP) Pulse Ox O2 Delivery O2 Flow Rate FiO2 06/29/18 11:53 18 06/29/18 06:00 97.8 75 113/62 (79) 98 Room Air 06/28/18 10:35 3 I&O- Last 24 Hours up to 6 AM 06/29/18 06:00 Intake Total 2670 ml Output Total 2050 ml Balance 620 ml JENA HLODEN MD Jun 29, 2018 15:22
[2018-06-29] MEDS ORDERED: RIVAROXABAN 10 MG TAB (XARELTO) PO SCH (18:00)
== END 2018-06-29 11:55 | disposition home health service (06) | DRG 470 ==
LOC: M OR 05:40 → M MS5PR 11:10
PROVIDERS: ADMIT Orthopaedic Surgery; ATTEND Orthopaedic Surgery
PROC: 0SRC0J9 Replacement of Right Knee Joint with Synthetic Substitute, Cemented, Open Approach (ICD-10-PCS; principal; 2018-06-28 07:30)
DX: M17.11 Unilateral primary osteoarthritis, right knee (principal); I25.10 Atherosclerotic heart disease of native coronary artery without angina pectoris; E78.5 Hyperlipidemia, unspecified; F41.9 Anxiety disorder, unspecified; F32.9 Major depressive disorder, single episode, unspecified; J30.2 Other seasonal allergic rhinitis; R26.89 Other abnormalities of gait and mobility; Z79.82 Long term (current) use of aspirin; Z79.899 Other long term (current) drug therapy; Z95.5 Presence of coronary angioplasty implant and graft

== ENCOUNTER → 2019-01-18 | Outpatient (REF) | payer MEDICARE, OTHER ==
[~2019-01-18] MED LIST changes: +CARV25TA PO; +COUM2TAB22 PO; -DIPH25CA PO; +DIPH25CA32 PO; +FERR325T16 PO; +FOLI1TAB11 PO; +HYDR-3713 PO; +MM S100C PO; +SENN1TAB40 PO; +SERO1TAB PO; +SERO50TA PO; +TRAZ-163 PO; +TRAZ1TAB10 PO; -TRAZO50TA PO; +VITA500C24 PO; +WARF-20 PO; +WARF05TA PO; +XARE10TA PO
[2019-01-18 12:57] LABS: INR 1.61; PROTHROMBIN TIME 18.9 SECONDS (11.8-14.0)
== END ==
LOC: M LAB REF 12:21
PROVIDERS: ATTEND Internal Medicine
DX: I48.91 Unspecified atrial fibrillation (principal); Z79.01 Long term (current) use of anticoagulants

== ENCOUNTER → 2019-01-24 | Outpatient (REF) | payer MEDICARE, OTHER ==
[~2019-01-24] MED LIST changes: +SENN-53 PO; -SENN1TAB40 PO; -TRAZ-163 PO; +TRAZ-257 PO
[2019-01-24 14:03] LABS: INR 2.08; PROTHROMBIN TIME 23.2 SECONDS (11.8-14.0)
== END ==
LOC: M LAB REF 12:29
PROVIDERS: ATTEND Internal Medicine
DX: I48.91 Unspecified atrial fibrillation (principal); Z79.01 Long term (current) use of anticoagulants

== ENCOUNTER 2019-01-27 08:08 | Outpatient (RCR) | payer MEDICARE, OTHER ==
--- NOTE | 2019-01-13 10:59 | CARECAPL ---
Assessment Account #s: Initial Assessment General Diagnoses: CABG Date of event: Nov 30, 2018 Physician: Omkar Johnson P Allergies: Coded Allergies: No Known Allergies (Verified , 06/28/18) Date Entered Program: Jan 13, 2019 Risk strat for cardiac event: High Exercise Date: Jan 13, 2019 Assessment: Initial Assessment Exercise Prescription Plan TO EDUCATE AND BUILD ENDURANCE THROUGH MONITORED EXERCISE Modalities initiated: Nustep (WILL ADD AT LEVEL 1 FOR 6-8 MINUTES), Arm Aerometer (WILL ADD AT LEVEL 1 FOR 6-8 MINUTES), Dumbells (WILL ADD AT 1# FOR 6 MINUTES), Recumbent Bike (WILL ADD AT LEVEL 1 FOR 6-8 MINUTES) Frequency: 3 Duration (Minutes) 30-60 minutes total exercise a day. 6-10 work intervals in minutes. 5 MIN PRN NEEDED rest intervals in minutes. Functional Capacity Goal Sustained Metabolic Equivalent of a task (MET) goal of 2.5-3.5 for 15-20 minutes. Intensity: 3-Moderate Progression (METS) Increase by: 0.5 METS every: 5 sessions TOLERATED Angina with ex: No Target Heart Rate REST + 35-40 BASED ON BETA VIKA THERAPY Resistance Training: Yes Weight (pounds): 1 Reps: 6-8 Hypertension controlled with: Medication Resting 124/62 Medications Scheduled Ascorbic Acid (Vitamin C), 500 MG PO DAILY, (Reported) Aspirin (Aspir 81), 1 TAB PO DAILY Atorvastatin Calcium (Atorvastatin Calcium), 80 MG PO QHS, (Reported) Carvedilol (Carvedilol), 25 MG PO BID, (Reported) Docusate Sodium (Stool Softener), 100 MG PO DAILY, (Reported) Ferrous Gluconate (Ferrous Gluconate), 324 MG PO BID, (Reported) Folic Acid (Folic Acid), 1 TAB PO DAILY, (Reported) Quetiapine Fumarate (Seroquel), 100 MG PO QAM, (Reported) Quetiapine Fumarate (Seroquel), 50 MG PO QPM, (Reported) Trazodone HCl (Trazodone HCl), 100 MG PO QPM, (Reported) Warfarin Sodium (Warfarin Sodium), 4 MG PO Q2D, (Reported) Warfarin Sodium (Coumadin), 2 MG PO Q2D, (Reported) Scheduled PRN Hydrocodone/Acetaminophen (Hydrocodone-Acetamin 5-325 mg), 1-2 TAB PO Q4H PRN for PAIN Nitroglycerin (Nitrostat), 0.4 MG SL NITRO PRN for CHEST PAIN, (Reported) Discontinued Medications Metoprolol Succinate (Metoprolol Succinate), 50 MG PO QHS, (Reported) Discontinued Reason: PCP discontinued med Quetiapine Fumarate (Quetiapine Fumarate), 100 MG PO QHS Discontinued Reason: Re-entering as new Rivaroxaban (Xarelto), 10 MG PO DAILY Discontinued Reason: PCP discontinued med Sennosides/Docusate Sodium (Senna Plus Tablet), 2 TAB PO QPM Discontinued Reason: PCP discontinued med Trazodone HCl (Trazodone HCl), 50 MG PO QHSP PRN for INSOMNIA Discontinued Reason: Pt states not taking Warfarin Sod (Coumadin), 9 MG PO DAILY, (Reported) Discontinued Reason: Pt states not taking Med Change: No Intervention Resistance Training: Yes Education: S/S to report (EDUCATED TO REPORT ANY CHEST PAIN/SOB), BP medication (REVIEWED B/P MEDS (CARVEDILOL)), warm up/cool down (EDUCATED TO WARM UP AND COOL DOWN WITH EACH EXERCISE SESSION) Education Goals Met: No Target Goals Individual exercise Rx (1) BP 140/90 or 130/80 if DM or CKD (1) Aerobic active 30+min 5 days per week (1) Nutrition Date: Jan 13, 2019 Assessment: Initial Assessment Lipid- med/supplement ATORVASTATIN 80 MG DAILY Med Change: No Diabetes Diabetes: No Monitor Blood Sugar at home: No Medication Change: No Weight Management Weight (lbs): 241.4 Height (inches): 72 Waist Circumference (Inches): 46 BMI: 32.7 Weight goal: 235 Special Diet: low salt, low-fat Vitamin/Supplements: Vitamin C Alcohol: special Diet Access Tool: Rate your plate Score: 40 Current Weight (pounds): 241.4 Weight Goal 235 Intervention File Keeper Consult: No Nurse/patient discussion: Yes Dietary Goals LIMIT SALT AND DESSERTS Diet Class: Yes (WILL SEE DYE MACHINE OPERATOR WHILE IN PROGRAM) Referral to Diabetes education: No Referral to lipid clinic: No Referral to weight mangement p: No Education Eating Healthy Target goal LDL-C<100 if triglycerides are >200 Non-HDL-C should be <130 (1) LDL-C<70 for high risk patients (4) HbA1c<7% (1) BMI<25 Waist cir<40in M/<35in F (1) Education Date: Jan 13, 2019 Assessment: Initial Assessment Learning Barriers: ready Knowledge Test Score: 5 Family Support: Yes Tobacco use: No Quit: never smoked Tobacco Use Smokeless tobacco: No Intervention Referral to smoking cessation: No Individual education and couns: No Tobacco Adjunct: No Education class schedule given: No Attended education classes: No Education: tobacco triggers (N/A), CAD, Risk factors (DISCUSSED IMPORTANCE OF EXERCISE FOR LIPID MANAGEMENT), med compliance (DISCUSSED IMPORTANCE OF COMPLIANCE WITH ALL MEDICATIONS) Target Goals Complete cessation of tobacco use (1). Psychosocial Date: Jan 13, 2019 Assessment: Initial Assessment Psych Test (Initial/Discharge) Tool Used: Other (PHQ-9 QUICK DEPRESSION ASSESSMENT) Intervention Physician Consult: No Physician Referral: No Med Change: No Stress Management Class: No Uses Stress Management Skills: Yes Education Education: Coping Techniques, S/S depression, Relaxation Techniques Target Goal Assess presence or absence of depression using a valid screening tool (1). Maximize coping skills (2). Positive support system (2). Patient/Program Goal Preventative Medication: Yes Aspirin, Yes Beta blockade, Yes Statin/OTR lipid Lowering Fall Risk Assess: Yes (PATIENT IS FALL RISK) Provider Assessment Session Number: 1 Provider Assessment: Proceed with rehab Anurag Zheng RN Jan 13, 2019 10:59
[~2019-01-27 08:08] MED LIST changes: -SENN-53 PO; +SENN1TAB40 PO; +TRAZ-163 PO; -TRAZ-257 PO
== END 2019-01-28 ==
LOC: M CR 08:08
PROVIDERS: ATTEND Internal Medicine Interventional Cardiology
DX: Z95.1 Presence of aortocoronary bypass graft (principal)

== ENCOUNTER → 2019-02-01 | Outpatient (REF) | payer MEDICARE, OTHER ==
[2019-02-01 14:23] LABS: INR 1.55; PROTHROMBIN TIME 18.3 SECONDS (11.8-14.0)
== END ==
LOC: M LAB REF 13:24
PROVIDERS: ATTEND Internal Medicine
DX: I48.91 Unspecified atrial fibrillation (principal); Z79.01 Long term (current) use of anticoagulants

== ENCOUNTER → 2019-02-08 | Outpatient (REF) | payer MEDICARE, OTHER ==
[2019-02-08 12:37] LABS: INR 2.2; PROTHROMBIN TIME 24.2 SECONDS (11.8-14.0)
== END ==
LOC: M LAB REF 12:27
PROVIDERS: ATTEND Internal Medicine
DX: I48.91 Unspecified atrial fibrillation (principal); Z79.01 Long term (current) use of anticoagulants

== ENCOUNTER → 2019-02-15 | Outpatient (REF) | payer MEDICARE, OTHER ==
[2019-02-15 13:29] LABS: INR 2.17
== END ==
LOC: M LAB REF 12:22
PROVIDERS: ATTEND Nurse Practitioner Adult Health
DX: I48.91 Unspecified atrial fibrillation (principal); Z79.01 Long term (current) use of anticoagulants

== ENCOUNTER → 2019-02-22 | Outpatient (REF) | payer MEDICARE, OTHER ==
[2019-02-22 14:08] LABS: INR 2.4; PROTHROMBIN TIME 25.9 SECONDS (11.8-14.0)
== END ==
LOC: M LAB REF 12:41
PROVIDERS: ATTEND Internal Medicine
DX: I48.0 Paroxysmal atrial fibrillation (principal)

== ENCOUNTER → 2019-02-27 | Outpatient (RCR) | payer MEDICARE, OTHER ==
--- NOTE | 2019-02-06 13:18 | CARECAPL ---
Assessment Account #s: Re-Assessment I General Diagnoses: CABG Date of event: Nov 30, 2018 Physician: Omkar Johnson P Allergies: Coded Allergies: No Known Allergies (Verified , 06/28/18) Date Entered Program: Jan 13, 2019 Risk strat for cardiac event: High Exercise Date: Feb 06, 2019 Assessment: Re-Assessment I Stages of change: action Exercise Prescription Modalities initiated: Treadmill (1.7/1.5 15 minutes mts 2.54 rpe 3), Nustep (L4 mts 4.9 rpe 4.5 15 minutes), Arm Aerometer (3.0 mts 2.8 rpe 4.5 10 minutes), Recumbent Bike (mts 4.3 rpe 4 R3 10 minutes) Frequency: 3 Duration (Minutes) 30 - 60 minutes total exercise a day. 15 - 20 work intervals in minutes. PRN rest intervals in minutes. Functional Capacity Goal Sustained Metabolic Equivalent of a task (MET) goal of 4.5-5.5 for 15-20 minut es. Intensity: 3-Moderate Progression (METS) Increase by: METS every: sessions Angina with ex: No Resistance Training: Yes Weight (pounds): 5 Reps: 8-12 Hypertension: Yes Hypertension controlled with: Other (exercise) Resting 140/80 Peak Exercise BP 154/80 Meds see below Medications Scheduled Ascorbic Acid (Vitamin C), 500 MG PO DAILY, (Reported) Aspirin (Aspir 81), 1 TAB PO DAILY Atorvastatin Calcium (Atorvastatin Calcium), 80 MG PO QHS, (Reported) Carvedilol (Carvedilol), 25 MG PO BID, (Reported) Docusate Sodium (Stool Softener), 100 MG PO DAILY, (Reported) Ferrous Gluconate (Ferrous Gluconate), 324 MG PO BID, (Reported) Folic Acid (Folic Acid), 1 TAB PO DAILY, (Reported) Quetiapine Fumarate (Seroquel), 100 MG PO QAM, (Reported) Quetiapine Fumarate (Seroquel), 50 MG PO QPM, (Reported) Trazodone HCl (Trazodone HCl), 100 MG PO QPM, (Reported) Warfarin Sodium (Warfarin Sodium), 4 MG PO Q2D, (Reported) Warfarin Sodium (Coumadin), 2 MG PO Q2D, (Reported) Scheduled PRN Hydrocodone/Acetaminophen (Hydrocodone-Acetamin 5-325 mg), 1-2 TAB PO Q4H PRN for PAIN Nitroglycerin (Nitrostat), 0.4 MG SL NITRO PRN for CHEST PAIN, (Reported) Current BP 110/60 after exercise Med Change: No Intervention Home exercise: Type (walking, home exercise equipment, stationary bike), Frequency (3-4 times per week), Duration (30-60 minutes) Resistance Training: Yes Education: Self pulse (location, taking for 30 sec), Ex safety (hydration, don;t talk on cell phone), S/S to report, RPE Scale (1-5 scale for difficulty), Equipment orientation (operation of equipment), Understand BP (what is normal bp for you with your medications) Education Goals Met: No (attempted to educate with much resistance. ) Target Goals Individual exercise Rx (1) BP 140/90 or 130/80 if DM or CKD (1) Aerobic active 30+min 5 days per week (1) Nutrition Date: Feb 06, 2019 Assessment: Re-Assessment I Stages of change: action Current Weight (pounds): 242.8 Weight Goal 200 Intervention Diet Class: Yes (refused, states does cooking) Education Eating Healthy ( does cooking, not receptive to cardiac rehab education) Education Goals Met: No Target goal LDL-C<100 if triglycerides are >200 Non-HDL-C should be <130 (1) LDL-C<70 for high risk patients (4) HbA1c<7% (1) BMI<25 Waist cir<40in M/<35in F (1) Education Date: Feb 06, 2019 Assessment: Re-Assessment I Stages of change: Pre-contemplation Intervention Attended education classes: No (not receptive to education. Refused when tried to instruct) Education Goals Met: No Target Goals Complete cessation of tobacco use (1). Psychosocial Date: Feb 06, 2019 Assessment: Re-Assessment I Stages of change: action Stress Management Class: Yes Uses Stress Management Skills: Yes Education Goals Met: Yes Target Goal Assess presence or absence of depression using a valid screening tool (1). Maximize coping skills (2). Positive support system (2). Fall Risk Assess: No (retested on tug- 7 seconds not a fall risk at this time) Provider Assessment Session Number: 9 Provider Assessment: No changes (good attendance, very receptive to the exercise portion of program.) Cherie Ortiz RN Feb 06, 2019 13:18
== END ==
LOC: M CR 02-01 08:23
PROVIDERS: ATTEND Internal Medicine Interventional Cardiology
DX: Z95.1 Presence of aortocoronary bypass graft (principal)

== ENCOUNTER → 2019-03-20 | Outpatient (REF) | payer MEDICARE, OTHER ==
[~2019-03-20] MED LIST changes: +SENN-53 PO; -SENN1TAB40 PO
[2019-03-20 14:51] LABS: INR 2.05; PROTHROMBIN TIME 22.9 SECONDS (11.8-14.0)
== END ==
LOC: M LAB REF 12:06
PROVIDERS: ATTEND Internal Medicine
DX: I48.0 Paroxysmal atrial fibrillation (principal)

== ENCOUNTER 2019-03-29 10:02 | Outpatient (RCR) | payer MEDICARE, OTHER ==
--- NOTE | 2019-02-27 17:40 | CARECAPL ---
Assessment Account #s: Re-Assessment II General Diagnoses: CABG Date of event: Nov 30, 2018 Physician: Omkar Johnson P Allergies: Coded Allergies: No Known Allergies (Verified , 06/28/18) Date Entered Program: Jan 13, 2019 Risk strat for cardiac event: High Exercise Date: Feb 27, 2019 Assessment: Re-Assessment II Stages of change: action Exercise Prescription Plan TO EDUCATE AND BUILD ENDURANCE THROUGH MONITORED EXERCISE Modalities initiated: Treadmill (METS=3.01/RPE=3), Nustep (METS=5.0/RPE=4), Arm Aerometer (METS=3.6/RPE=3), Dumbells (7#/RPE=3.5), Recumbent Bike (METS=4.3/RPE=3) Frequency: 3 Duration (Minutes) 30 - 60 minutes total exercise a day. 15 - 20 work intervals in minutes. PRN rest intervals in minutes. Functional Capacity Goal Sustained Metabolic Equivalent of a task (MET) goal of 4.5-5.5 for 15-20 minutes. Intensity: 3-Moderate Progression (METS) Increase by: METS every: sessions Angina with ex: No Target Heart Rate +35-40 BASED ON BETA VIKA THERAPY Resistance Training: Yes Weight (pounds): 7 Reps: 12-15 Hypertension: Yes Hypertension controlled with: Medication (CARVEDILOL) Resting 122/76 Peak Exercise BP 156/80 Medications Scheduled Ascorbic Acid (Vitamin C), 500 MG PO DAILY, (Reported) Aspirin (Aspir 81), 1 TAB PO DAILY Atorvastatin Calcium (Atorvastatin Calcium), 80 MG PO QHS, (Reported) Carvedilol (Carvedilol), 25 MG PO BID, (Reported) Docusate Sodium (Stool Softener), 100 MG PO DAILY, (Reported) Ferrous Gluconate (Ferrous Gluconate), 324 MG PO BID, (Reported) Folic Acid (Folic Acid), 1 TAB PO DAILY, (Reported) Quetiapine Fumarate (Seroquel), 100 MG PO QAM, (Reported) Quetiapine Fumarate (Seroquel), 50 MG PO QPM, (Reported) Trazodone HCl (Trazodone HCl), 100 MG PO QPM, (Reported) Warfarin Sodium (Warfarin Sodium), 4 MG PO Q2D, (Reported) Warfarin Sodium (Coumadin), 2 MG PO Q2D, (Reported) Scheduled PRN Hydrocodone/Acetaminophen (Hydrocodone-Acetamin 5-325 mg), 1-2 TAB PO Q4H PRN for PAIN Nitroglycerin (Nitrostat), 0.4 MG SL NITRO PRN for CHEST PAIN, (Reported) Current BP 98/70 Med Change: No Intervention Home exercise: Type (WALKING,HOME EXERCISE EQUIPMENT), Frequency (3-5 DAYS PER WEEK), Duration (30-60 MINUTES) Resistance Training: Yes Education: Self pulse (SEE PREVIOUS ITP FOR EDUCATION) Education Goals Met: Yes (PROGRESSING WELL TOWARD GOALS WITH EXERCISE REGIMEN) Target Goals Individual exercise Rx (1) BP 140/90 or 130/80 if DM or CKD (1) Aerobic active 30+min 5 days per week (1) Nutrition Date: Feb 27, 2019 Assessment: Re-Assessment II Stages of change: action Lipid- med/supplement ATORVASTATIN 80 MG AT HS Med Change: No Diabetes Diabetes: No Monitor Blood Sugar at home: No Medication Change: No Weight Management Weight (lbs): 243.2 Weight goal: 200 Special Diet: low salt Current Weight (pounds): 243.2 Weight Goal 200 Intervention Ticket Counter Consult: No Nurse/patient discussion: Yes Dietary Goals PATIENT HAS BEEN RESISTIVE TO EDUCATION ON DIET, 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" Diet Class: No (REFUSED TO MEET WITH ASSEMBLY AND PACKING SUPERVISOR) Referral to Diabetes education: No Referral to lipid clinic: No Referral to weight mangement p: No Education Eating Healthy Education Goals Met: Yes (RECEPTIVE TO EXERCISE PART OF PROGRAM, RESISTANT TO EDUCATION ESPECIALLY DIET RELATED) Target goal LDL-C<100 if triglycerides are >200 Non-HDL-C should be <130 (1) LDL-C<70 for high risk patients (4) HbA1c<7% (1) BMI<25 Waist cir<40in M/<35in F (1) Education Date: Feb 27, 2019 Assessment: Re-Assessment II Learning Barriers: ready Stages of change: action Family Support: Yes Tobacco use: No Tobacco Use Smokeless tobacco: No Intervention Referral to smoking cessation: No Individual education and couns: No Tobacco Adjunct: No Education class schedule given: No Attended education classes: No Education Goals Met: No (NOT RECEPTIVE TO CARDIAC REHAB EDUCATION, DOES WELL WITH EXERCISE REGIMEN) Target Goals Complete cessation of tobacco use (1). Psychosocial Date: Feb 27, 2019 Assessment: Re-Assessment II Stages of change: action Intervention Physician Consult: No Physician Referral: No Med Change: No Stress Management Class: No Uses Stress Management Skills: Yes Education Goals Met: Yes (PROGRESSING TOWARDS GOALS ON EXERCISE PORTION OF CARDIAC REHAB PROGRAM) Target Goal Assess presence or absence of depression using a valid screening tool (1). Maximize coping skills (2). Positive support system (2). Provider Assessment Provider Assessment: Proceed with rehab Anurag Zheng RN Feb 27, 2019 17:40
--- NOTE | 2019-03-24 09:32 | CARECAPL ---
Assessment Account #s: Re-Assessment II (3) General Diagnoses: CABG Date of event: Nov 30, 2018 Physician: Omkar Johnson P Allergies: Coded Allergies: No Known Allergies (Verified , 06/28/18) Date Entered Program: Jan 13, 2019 Risk strat for cardiac event: High Exercise Date: Mar 22, 2019 Assessment: Re-Assessment II (3) Stages of change: maintenance Exercise Prescription Plan educate on cardiovascular disease and increase endurance, strength and flexibility through a monitored exercise program. Modalities initiated: Treadmill (speed 1.9 incline 3.5 for 15 minutes Mets 3.5 RPE 3), Nustep (resistance of 5 for 20 minutes mets 5.2 RPE 3.5), Arm Aerometer (resistance of 5 for 10 mintues Mets 3.8 RPE 4), Dumbells (8lbs 2 set for 15 reps each RPE 2.5), Recumbent Bike (Resistance of 6 for 10 minutes Mets 5.4 RPE 3.5) Frequency: 3 Duration (Minutes) 30 - 60 minutes total exercise a day. 15 - 20 work intervals in minutes. PRN rest intervals in minutes. Functional Capacity Goal Sustained Metabolic Equivalent of a task (MET) goal of 5.5-6.5 for 15-20 minutes. Intensity: 3-Moderate Progression (METS) Increase by: 0.5 METS every: 3-5 sessions Angina with ex: No Target Heart Rate rest + 35-40 per beta narendra therapy. Resistance Training: Yes Weight (pounds): 8 Reps: 12-15 Medications Scheduled Ascorbic Acid (Vitamin C), 500 MG PO DAILY, (Reported) Aspirin (Aspir 81), 1 TAB PO DAILY Atorvastatin Calcium (Atorvastatin Calcium), 80 MG PO QHS, (Reported) Carvedilol (Carvedilol), 12.5 MG PO BID, (Reported) Docusate Sodium (Stool Softener), 100 MG PO DAILY, (Reported) Ferrous Gluconate (Ferrous Gluconate), 324 MG PO DAILY, (Reported) Folic Acid (Folic Acid), 1 TAB PO DAILY, (Reported) Quetiapine Fumarate (Seroquel), 100 MG PO QAM, (Reported) Quetiapine Fumarate (Seroquel), 50 MG PO QPM, (Reported) Trazodone HCl (Trazodone HCl), 100 MG PO QPM, (Reported) Warfarin Sodium (Warfarin Sodium), 4 MG PO Q2D, (Reported) Warfarin Sodium (Coumadin), 2 MG PO Q2D, (Reported) Scheduled PRN Hydrocodone/Acetaminophen (Hydrocodone-Acetamin 5-325 mg), 1-2 TAB PO Q4H PRN for PAIN Nitroglycerin (Nitrostat), 0.4 MG SL NITRO PRN for CHEST PAIN, (Reported) Current BP 104/68 Med Change: No Education Goals Met: No (See education documented on previous ITP's.) Target Goals Individual exercise Rx (1) BP 140/90 or 130/80 if DM or CKD (1) Aerobic active 30+min 5 days per week (1) Nutrition Date: Mar 24, 2019 Assessment: Re-Assessment II (3) Stages of change: maintenance Med Change: No Diabetes Diabetes: No Current Weight (pounds): 243.2 Weight Goal patient would like to lose another 2lbs this month by eating healthier portions. His does the cooking. Intervention Coater Slate Consult: No Nurse/patient discussion: No (Patient refuses to be educated on diet. states handles all the cooking and grocery shopping. ) Diet Class: No (Refused to see shell plater. States takes care of his diet. ) Education Goals Met: No (See education documented on previous ITP's. will attempt to educate through out program.) Target goal LDL-C<100 if triglycerides are >200 Non-HDL-C should be <130 (1) LDL-C<70 for high risk patients (4) HbA1c<7% (1) BMI<25 Waist cir<40in M/<35in F (1) Education Date: Mar 24, 2019 Assessment: Re-Assessment II (3) Stages of change: maintenance Tobacco use: No Education Goals Met: No (see education documented on previous ITP's. but will attempt to educate throughout program. ) Target Goals Complete cessation of tobacco use (1). Psychosocial Date: Mar 24, 2019 Assessment: Re-Assessment II (3) Stages of change: maintenance Intervention Physician Consult: No Physician Referral: No Med Change: No Stress Management Class: No (Patient refused education on stress management.) Uses Stress Management Skills: No Education Goals Met: No (will attempt to educate patient through out program but patient is not receptive to be educated.) Target Goal Assess presence or absence of depression using a valid screening tool (1). Maximize coping skills (2). Positive support system (2). Patient/Program Goal Preventative Medication: Yes Aspirin, Yes Beta blockade, Yes Statin/OTR lipid Lowering, Yes Other (warfarin) Fall Risk Assess: Yes (no fall risk) Provider Assessment Session Number: 29 Provider Assessment: Proceed with rehab (Patient is not receptive to education during this program but is progressing well with the exercise part of program. ) Shaista Farah RN Mar 24, 2019 09:32
== END 2019-03-30 ==
LOC: M CR 10:02
PROVIDERS: ATTEND Internal Medicine Interventional Cardiology
DX: Z95.1 Presence of aortocoronary bypass graft (principal)

== ENCOUNTER → 2019-04-04 | Outpatient (REF) | payer MEDICARE, OTHER ==
[2019-04-04 14:42] LABS: INR 2.11; PROTHROMBIN TIME 23.4 SECONDS (11.8-14.0)
== END ==
LOC: M LAB REF 12:43
PROVIDERS: ATTEND Internal Medicine
DX: I48.0 Paroxysmal atrial fibrillation (principal)

== ENCOUNTER 2019-04-10 09:35 | Outpatient (RCR) | payer MEDICARE, OTHER ==
--- NOTE | 2019-04-10 10:46 | CARECAPL ---
Assessment Account #s: Discharge General Diagnoses: CABG Date of event: Nov 30, 2018 Physician: Omkar Johnson P Allergies: Coded Allergies: No Known Allergies (Verified , 06/28/18) Date Entered Program: Jan 13, 2019 Risk strat for cardiac event: High Exercise Date: Apr 10, 2019 Assessment: Followup/Discharge Stages of change: maintenance Exercise Prescription Modalities initiated: Treadmill (1.9/5.0 15 minutes mts 3.76 rpe 2.5), Nustep (L6 20 minutes mts 5.4 rpe 3), Arm Aerometer (7.0 10 minutes mts 3.5 rpe 4), Dumbells, Recumbent Bike (R6 10 minutes mts 5.4 rpe 2.5) Duration (Minutes) 30 - 60 minutes total exercise a day. 15 - 20 work intervals in minutes. PRN rest intervals in minutes. Functional Capacity Goal Sustained Metabolic Equivalent of a task (MET) goal of for minutes. Progression (METS) Increase by: METS every: sessions Weight (pounds): 8 Reps: 8-12 Hypertension: Yes Hypertension controlled with: Medication Resting 100/60 Peak Exercise BP 138/80 Meds see below Medications Scheduled Ascorbic Acid (Vitamin C), 500 MG PO DAILY, (Reported) Aspirin (Aspir 81), 1 TAB PO DAILY Atorvastatin Calcium (Atorvastatin Calcium), 80 MG PO QHS, (Reported) Carvedilol (Carvedilol), 12.5 MG PO BID, (Reported) Docusate Sodium (Stool Softener), 100 MG PO DAILY, (Reported) Ferrous Gluconate (Ferrous Gluconate), 324 MG PO DAILY, (Reported) Folic Acid (Folic Acid), 1 TAB PO DAILY, (Reported) Quetiapine Fumarate (Seroquel), 100 MG PO QAM, (Reported) Quetiapine Fumarate (Seroquel), 50 MG PO QPM, (Reported) Trazodone HCl (Trazodone HCl), 100 MG PO QPM, (Reported) Warfarin Sodium (Warfarin Sodium), 4 MG PO Q2D, (Reported) Warfarin Sodium (Coumadin), 2 MG PO Q2D, (Reported) Scheduled PRN Hydrocodone/Acetaminophen (Hydrocodone-Acetamin 5-325 mg), 1-2 TAB PO Q4H PRN for PAIN Nitroglycerin (Nitrostat), 0.4 MG SL NITRO PRN for CHEST PAIN, (Reported) Education Goals Met: Yes (very close to goal of 5.5 mts/15/20minutes. Excellent work ethic, completed program with excellent attendance and attitude) Target Goals Individual exercise Rx (1) BP 140/90 or 130/80 if DM or CKD (1) Aerobic active 30+min 5 days per week (1) Nutrition Date: Apr 10, 2019 Assessment: Followup/Discharge Diabetes Diabetes: No Weight Management Weight (lbs): 247 Height (inches): 71 Waist Circumference (Inches): 46 BMI: 34.45 Diet Access Tool: Rate your plate Score: 52 Intervention Diet Class: No (refused) Target goal LDL-C<100 if triglycerides are >200 Non-HDL-C should be <130 (1) LDL-C<70 for high risk patients (4) HbA1c<7% (1) BMI<25 Waist cir<40in M/<35in F (1) Education Date: Apr 10, 2019 Assessment: Followup/Discharge Learning Barriers: ready, learn Knowledge Test Score: 8 (improvement from admission 10/07) Stages of change: maintenance Family Support: Yes Tobacco use: No Intervention Attended education classes: Yes Education Goals Met: Yes (very attentive to his education and receptive to constructive advice.) Target Goals Complete cessation of tobacco use (1). Psychosocial Date: Apr 10, 2019 Assessment: Followup/Discharge Psych Test (Initial/Discharge) Tool Used: Other Score: 0 Stages of change: maintenance Intervention Physician Consult: No Physician Referral: No Stress Management Class: Yes Uses Stress Management Skills: Yes Education Goals Met: Yes Target Goal Assess presence or absence of depression using a valid screening tool (1). Maximize coping skills (2). Positive support system (2). Fall Risk Assess: No Provider Assessment Session Number: 36 Provider Assessment: No changes (excellent attitude toward program. plan is to continue exercise at [employer] 3 times per week. ) Cherie Ortiz RN Apr 10, 2019 10:46
== END 2019-04-29 ==
LOC: M CR 09:35
PROVIDERS: ATTEND Internal Medicine Interventional Cardiology
DX: Z51.89 Encounter for other specified aftercare (principal); Z95.1 Presence of aortocoronary bypass graft

== ENCOUNTER → 2019-04-24 | Outpatient (REF) | payer MEDICARE, OTHER ==
[2019-04-24 13:11] LABS: INR 1.63; PROTHROMBIN TIME 19.1 SECONDS (11.8-14.0)
== END ==
LOC: M LAB REF 12:13
PROVIDERS: ATTEND Internal Medicine
DX: I48.0 Paroxysmal atrial fibrillation (principal); Z79.01 Long term (current) use of anticoagulants

== ENCOUNTER → 2019-05-03 | Outpatient (REF) | payer MEDICARE, OTHER ==
[2019-05-03 13:28] LABS: INR 2.16; PROTHROMBIN TIME 23.9 SECONDS (11.8-14.0)
== END ==
LOC: M LAB REF 12:23
PROVIDERS: ATTEND Internal Medicine
DX: I48.91 Unspecified atrial fibrillation (principal); Z79.01 Long term (current) use of anticoagulants

== ENCOUNTER → 2019-05-18 | Outpatient (REF) | payer MEDICARE, OTHER ==
[2019-05-18 18:12] LABS: INR 1.01
== END ==
LOC: M LAB REF 17:15
PROVIDERS: ATTEND Internal Medicine
DX: I48.91 Unspecified atrial fibrillation (principal); Z79.01 Long term (current) use of anticoagulants

== ENCOUNTER → 2019-05-29 | Outpatient (REF) | payer MEDICARE, OTHER ==
[2019-05-29 13:11] LABS: INR 2.75
== END ==
LOC: M LAB REF 12:36
PROVIDERS: ATTEND Internal Medicine
DX: I48.91 Unspecified atrial fibrillation (principal)

== ENCOUNTER → 2019-06-05 | Outpatient (REF) | payer MEDICARE, OTHER ==
[2019-06-05 12:30] LABS: INR 2.2; PROTHROMBIN TIME 24.2 SECONDS (11.8-14.0)
== END ==
LOC: M LAB REF 12:00
PROVIDERS: ATTEND Internal Medicine
DX: I48.91 Unspecified atrial fibrillation (principal); Z79.01 Long term (current) use of anticoagulants

== ENCOUNTER → 2019-06-19 | Outpatient (REF) | payer MEDICARE, OTHER ==
[~2019-06-19] MED LIST changes: -TRAZ-163 PO; +TRAZ-257 PO
[2019-06-19 12:53] LABS: INR 1.92; PROTHROMBIN TIME 21.7 SECONDS (11.8-14.0)
== END ==
LOC: M LAB REF 12:10
PROVIDERS: ATTEND Internal Medicine
DX: I48.0 Paroxysmal atrial fibrillation (principal); Z79.01 Long term (current) use of anticoagulants

== ENCOUNTER → 2019-07-03 | Outpatient (REF) | payer MEDICARE, OTHER ==
[2019-07-03 18:05] LABS: INR 2.9; PROTHROMBIN TIME 30.2 SECONDS (11.8-14.0)
== END ==
LOC: M LAB REF 16:47
PROVIDERS: ATTEND Internal Medicine
DX: I48.0 Paroxysmal atrial fibrillation (principal); Z79.01 Long term (current) use of anticoagulants

== ENCOUNTER → 2019-07-17 | Outpatient (REF) | payer MEDICARE, OTHER ==
[~2019-07-17] MED LIST changes: -ASPI1TAB21 PO; +ASPI325T58 PO; +QUET100T2 PO; -QUET1TAB8 PO
[2019-07-17 14:06] LABS: INR 3.21; PROTHROMBIN TIME 32.8 SECONDS (11.8-14.0)
== END ==
LOC: M LAB REF 13:02
PROVIDERS: ATTEND Internal Medicine
DX: I48.0 Paroxysmal atrial fibrillation (principal); Z79.01 Long term (current) use of anticoagulants

== ENCOUNTER → 2019-07-24 | Outpatient (REF) | payer MEDICARE, OTHER ==
[2019-07-24 12:35] LABS: INR 2.04; PROTHROMBIN TIME 22.8 SECONDS (11.8-14.0)
== END ==
LOC: M LAB REF 12:15
PROVIDERS: ATTEND Internal Medicine
DX: I48.0 Paroxysmal atrial fibrillation (principal); Z79.01 Long term (current) use of anticoagulants

== ENCOUNTER → 2019-08-07 | Outpatient (REF) | payer MEDICARE, OTHER ==
[2019-08-07 12:51] LABS: INR 4.15; PROTHROMBIN TIME 40.3 SECONDS (11.8-14.0)
== END ==
LOC: M LAB REF 12:23
PROVIDERS: ATTEND Internal Medicine
DX: I48.91 Unspecified atrial fibrillation (principal)

== ENCOUNTER → 2019-08-14 | Outpatient (REF) | payer MEDICARE, OTHER ==
[2019-08-14 15:48] LABS: INR 3.43; PROTHROMBIN TIME 34.6 SECONDS (11.8-14.0)
== END ==
LOC: M LAB REF 12:46
PROVIDERS: ATTEND Internal Medicine
DX: I48.91 Unspecified atrial fibrillation (principal)

== ENCOUNTER → 2019-08-28 | Outpatient (REF) | payer MEDICARE, OTHER ==
[2019-08-28 14:17] LABS: INR 2.72; PROTHROMBIN TIME 28.7 SECONDS (11.8-14.0)
== END ==
LOC: M LAB REF 13:20
PROVIDERS: ATTEND Internal Medicine
DX: I48.91 Unspecified atrial fibrillation (principal)

== ENCOUNTER → 2019-09-11 | Outpatient (REF) | payer MEDICARE, OTHER ==
[2019-09-11 13:04] LABS: INR 2.71; PROTHROMBIN TIME 28.7 SECONDS (11.8-14.0)
== END ==
LOC: M LAB REF 12:22
PROVIDERS: ATTEND Internal Medicine
DX: I48.91 Unspecified atrial fibrillation (principal); Z79.01 Long term (current) use of anticoagulants

== ENCOUNTER → 2020-08-03 | Outpatient (CLI) | payer MEDICARE, OTHER ==
[~2020-08-03] MED LIST changes: +ASPI-161 PO; -ASPI81TA85 PO; +ASPI81TA86 PO; +EZET10TA21 PO; +XARE20TA PO; +ZINC1TAB2 PO
== END ==
LOC: M LABSMTC 08:31
PROVIDERS: ATTEND Anesthesiology
DX: Z01.812 Encounter for preprocedural laboratory examination (principal); Z20.822 Contact with and (suspected) exposure to COVID-19

== ENCOUNTER 2020-08-08 08:34 | Day surgery (SDC) | payer MEDICARE, OTHER ==
[~2020-08-08] VITALS: Ht 177.8 cm; Wt 163.3 kg
[~2020-08-08 08:34] MED LIST changes: +CEFUROXIME 1MG/0.1ML INTRACAMERAL INJ As Ordered ONE; +DUOVISC (0.50ML VISCOAT/0.55ML PROVISC) OPHTH KIT As Ordered ONE; +OFLOXACIN 0.3 % (OCUFLOX) OPTH SOL 5ML OD ONE; +PHENYLEPHRINE 2.5% OPHTH SOL 2ML OD ONE; +POVIDONE-IODINE 5% OPHTH PREP SOL 30ML As Ordered ONE; +PROPARACAINE 0.5% OPHTH SOL 15ML OD ONE; +TROPICAMIDE 1% OPHTH SOLN 2ML OD ONE
[2020-08-08] MEDS ORDERED: fentaNYL 100 MCG/2 ML INJECTION (J3010) As Ordered ONE (10:17)
[2020-08-08] MEDS ORDERED: MIDAZOLAM INJ 2MG/2ML VIAL (J2250 PER 1MG) As Ordered ONE (10:17)
[2020-08-08] MEDS ORDERED: BSS IRR 500ML/OMIDRIA 4ML IRR BAG (OR ONLY) As Ordered ONE (11:05)
[2020-08-08] MEDS ORDERED: ONDANSETRON 4MG/2ML VIAL IV PRN (12:15)
[2020-08-08 12:34] VITALS: BP 133/71
--- NOTE | 2020-08-09 12:22 | RO ---
OPERATIVE NOTE DATE OF OPERATION: 08/08/2020 PREOPERATIVE DIAGNOSIS: 1. Visually significant nuclear sclerotic cataract, right eye. POSTOPERATIVE DIAGNOSIS: 1. Visually significant nuclear sclerotic cataract, right eye. PROCEDURE: 1. Cataract extraction with use of phacoemulsification, and placement of intraocular lens, AU00T0, 17.0 D, right eye. SURGEON: Rommel Osorio DO ANESTHESIA: Local (Omidria with MAC) COMPLICATIONS: None POSTOPERATIVE CONDITION: Stable INDICATIONS FOR SURGERY: 1. Blurred vision affecting patient's activities of daily living. DESCRIPTION OF PROCEDURE: The patient was seen in the preoperative area and properly identified. The correct operative eye was identified and marked. The patient received topical anesthetic, antibiotics, and topical dilating drops. The patient was then transferred to the operating room. The correct side was re-identified and a time-out was performed. The eye was prepped and draped in a sterile fashion. The eyelids were isolated with Tegaderm tape and the lids were held open with an adjustable speculum. A 1.0mm paracentesis incision was made. Omidria was then injected into the anterior chamber. Viscoelastic was then injected into the anterior chamber through the paracentesis. Using a 2.4mm sharp-tipped keratome, the anterior chamber was entered via a temporal clear cornea incision. A continuous curvilinear capsulorrhexis was created with Utrata forceps. Hydrodissection was performed with BSS on a blunt cannula until the nucleus was able to rotate freely. The crystalline lens was phacoemulsified and aspirated. Irrigation/aspiration was used to remove the cortical material Cohesive viscoelastic was placed into the capsular bag to deepen it. The implant was placed into the capsular bag and allowed to unfold. Placement was confirmed by visualizing the anterior capsulorrhexis. Irrigation/aspiration was used to remove the viscoelastic. The clear corneal incision was hydrated with BSS on a blunt cannula. The lens was well positioned. Intracameral antibiotic was injected into the anterior chamber. The incisions were then tested for leaks and found to be negative. The eye was then palpated for appropriate pressure and adjusted accordingly with BSS. The eyelid speculum was then carefully removed. A shield was placed over the eye. The patient tolerated the procedure well and was discharge to the recovery unit in a stable condition.
== END 2020-08-08 12:38 | disposition home or self-care (01) ==
LOC: M SDC 08:34
PROVIDERS: ATTEND Ophthalmology
DX: H25.11 Age-related nuclear cataract, right eye (principal); I10 Essential (primary) hypertension; E78.5 Hyperlipidemia, unspecified; K21.9 Gastro-esophageal reflux disease without esophagitis; I25.10 Atherosclerotic heart disease of native coronary artery without angina pectoris; Z98.61 Coronary angioplasty status; Z79.01 Long term (current) use of anticoagulants; Z79.82 Long term (current) use of aspirin; Z79.899 Other long term (current) drug therapy; F41.9 Anxiety disorder, unspecified; F32.9 Major depressive disorder, single episode, unspecified
CPT/HCPCS: 66984; J1097; J2250; J3010; V2632

== ENCOUNTER → 2020-08-10 | Outpatient (CLI) | payer MEDICARE, OTHER ==
[~2020-08-10] MED LIST changes: -CEFUROXIME 1MG/0.1ML INTRACAMERAL INJ As Ordered ONE; -DUOVISC (0.50ML VISCOAT/0.55ML PROVISC) OPHTH KIT As Ordered ONE; -OFLOXACIN 0.3 % (OCUFLOX) OPTH SOL 5ML OD ONE; -PHENYLEPHRINE 2.5% OPHTH SOL 2ML OD ONE; -POVIDONE-IODINE 5% OPHTH PREP SOL 30ML As Ordered ONE; -PROPARACAINE 0.5% OPHTH SOL 15ML OD ONE; -TROPICAMIDE 1% OPHTH SOLN 2ML OD ONE
== END ==
LOC: M LABSMTC 08:43
PROVIDERS: ATTEND Anesthesiology
DX: Z01.812 Encounter for preprocedural laboratory examination (principal); Z20.822 Contact with and (suspected) exposure to COVID-19

== ENCOUNTER 2020-08-15 07:58 | Day surgery (SDC) | payer MEDICARE, OTHER ==
[~2020-08-15] VITALS: Ht 180.3 cm; Wt 125.6 kg
[~2020-08-15 07:58] MED LIST changes: +CEFUROXIME 1MG/0.1ML INTRACAMERAL INJ As Ordered ONE; +DUOVISC (0.50ML VISCOAT/0.55ML PROVISC) OPHTH KIT As Ordered ONE; +MIDAZOLAM INJ 2MG/2ML VIAL (J2250 PER 1MG) As Ordered ONE; +OFLOXACIN 0.3 % (OCUFLOX) OPTH SOL 5ML OS ONE; +PHENYLEPHRINE 2.5% OPHTH SOL 2ML OS ONE; +POVIDONE-IODINE 5% OPHTH PREP SOL 30ML As Ordered ONE; +PROPARACAINE 0.5% OPHTH SOL 15ML OS ONE; +TROPICAMIDE 1% OPHTH SOLN 2ML OS ONE; +fentaNYL 100 MCG/2 ML INJECTION (J3010) As Ordered ONE
[2020-08-15] MEDS ORDERED: BSS IRR 500ML/OMIDRIA 4ML IRR BAG (OR ONLY) As Ordered ONE (09:25)
[2020-08-15 10:12] VITALS: BP 117/63
--- NOTE | 2020-08-16 09:34 | RO ---
OPERATIVE NOTE DATE OF OPERATION: 08/15/2020 PREOPERATIVE DIAGNOSIS: 1. Visually significant nuclear sclerotic cataract, left eye. POSTOPERATIVE DIAGNOSIS: 1. Visually significant nuclear sclerotic cataract, left eye. PROCEDURE: 1. Cataract extraction with use of phacoemulsification, and placement of intraocular lens, AU00T0, 18.5 D, left eye. SURGEON: Rommel Osorio DO ANESTHESIA: Local (Omidria with MAC) COMPLICATIONS: None POSTOPERATIVE CONDITION: Stable INDICATIONS FOR SURGERY: 1. Blurred vision affecting patient's activities of daily living. DESCRIPTION OF PROCEDURE: The patient was seen in the preoperative area and properly identified. The correct operative eye was identified and marked. The patient received topical anesthetic, antibiotics, and topical dilating drops. The patient was then transferred to the operating room. The correct side was re-identified and a time-out was performed. The eye was prepped and draped in a sterile fashion. The eyelids were isolated with Tegaderm tape and the lids were held open with an adjustable speculum. A 1.0mm paracentesis incision was made. Omidria was then injected into the anterior chamber. Viscoelastic was then injected into the anterior chamber through the paracentesis. Using a 2.4mm sharp-tipped keratome, the anterior chamber was entered via a temporal clear cornea incision. A continuous curvilinear capsulorrhexis was created with Utrata forceps. Hydrodissection was performed with BSS on a blunt cannula until the nucleus was able to rotate freely. The crystalline lens was phacoemulsified and aspirated. Irrigation/aspiration was used to remove the cortical material Cohesive viscoelastic was placed into the capsular bag to deepen it. The implant was placed into the capsular bag and allowed to unfold. Placement was confirmed by visualizing the anterior capsulorrhexis. Irrigation/aspiration was used to remove the viscoelastic. The clear corneal incision was hydrated with BSS on a blunt cannula. The lens was well positioned. Intracameral antibiotic was injected into the anterior chamber. The incisions were then tested for leaks and found to be negative. The eye was then palpated for appropriate pressure and adjusted accordingly with BSS. The eyelid speculum was then carefully removed. A shield was placed over the eye. The patient tolerated the procedure well and was discharge to the recovery unit in a stable condition.
== END 2020-08-15 10:45 | disposition home or self-care (01) ==
LOC: M SDC 07:58
PROVIDERS: ATTEND Ophthalmology
DX: H25.12 Age-related nuclear cataract, left eye (principal); K21.9 Gastro-esophageal reflux disease without esophagitis; I10 Essential (primary) hypertension; E78.00 Pure hypercholesterolemia, unspecified; Z95.1 Presence of aortocoronary bypass graft; I25.10 Atherosclerotic heart disease of native coronary artery without angina pectoris; F41.9 Anxiety disorder, unspecified; F32.9 Major depressive disorder, single episode, unspecified; Z79.82 Long term (current) use of aspirin; Z79.899 Other long term (current) drug therapy
CPT/HCPCS: 66984; J1097; J2250; J3010; V2632

== ENCOUNTER → 2021-04-14 | Outpatient (REF) | payer MEDICARE, OTHER ==
[~2021-04-14] MED LIST changes: -CEFUROXIME 1MG/0.1ML INTRACAMERAL INJ As Ordered ONE; -DUOVISC (0.50ML VISCOAT/0.55ML PROVISC) OPHTH KIT As Ordered ONE; +FERR324T21 PO; -FERR325T16 PO; -MIDAZOLAM INJ 2MG/2ML VIAL (J2250 PER 1MG) As Ordered ONE; -OFLOXACIN 0.3 % (OCUFLOX) OPTH SOL 5ML OS ONE; -PHENYLEPHRINE 2.5% OPHTH SOL 2ML OS ONE; -POVIDONE-IODINE 5% OPHTH PREP SOL 30ML As Ordered ONE; -PROPARACAINE 0.5% OPHTH SOL 15ML OS ONE; -TROPICAMIDE 1% OPHTH SOLN 2ML OS ONE; -fentaNYL 100 MCG/2 ML INJECTION (J3010) As Ordered ONE
== END ==
LOC: M LAB REF 16:30
PROVIDERS: ATTEND Internal Medicine
DX: R31.9 Hematuria, unspecified (principal)

== ENCOUNTER → 2021-05-06 | Outpatient (REF) | payer MEDICARE, OTHER | LOC: M WUC 15:47 | PROVIDERS: ATTEND Physician Assistant | DX: R30.0 Dysuria (principal) ==

== ENCOUNTER → 2021-05-14 | Outpatient (REF) | payer MEDICARE, OTHER ==
[2021-05-14 18:17] LABS: PERCENT SATURATION 23.6 % (19.7-50.0)
== END ==
LOC: M LAB REF 16:46
PROVIDERS: ATTEND Internal Medicine
DX: D64.9 Anemia, unspecified (principal)

== ENCOUNTER → 2021-05-16 | Outpatient (CLI) | payer MEDICARE, OTHER ==
[~2021-05-16] MED LIST changes: +ISOVUE-370 76% 100ML VIAL ONE
== END ==
LOC: M PLAIMG 13:44
PROVIDERS: ATTEND Internal Medicine
DX: N30.01 Acute cystitis with hematuria (principal); K57.30 Diverticulosis of large intestine without perforation or abscess without bleeding; N28.1 Cyst of kidney, acquired
CPT/HCPCS: 74178; Q9967

== ENCOUNTER 2022-05-04 13:06 | Emergency (ER) | payer MEDICARE, OTHER ==
[~2022-05-04] VITALS: Ht 180.3 cm; Wt 120.5 kg
[~2022-05-04 13:06] MED LIST changes: -ISOVUE-370 76% 100ML VIAL ONE
[2022-05-04] MEDS ORDERED: FLUCONAZOLE 50MG TABLET PO ONE (15:10)
[2022-05-04 15:34] VITALS: BP 136/70
== END 2022-05-04 15:41 | disposition home or self-care (01) ==
LOC: M ED 13:06
DX: N47.2 Paraphimosis (principal); I10 Essential (primary) hypertension; I25.2 Old myocardial infarction; E78.5 Hyperlipidemia, unspecified; Z95.1 Presence of aortocoronary bypass graft; Z95.5 Presence of coronary angioplasty implant and graft; Z79.82 Long term (current) use of aspirin; Z79.899 Other long term (current) drug therapy; Z79.01 Long term (current) use of anticoagulants

== ENCOUNTER → 2022-05-18 | Outpatient (CLI) | payer MEDICARE, OTHER ==
[~2022-05-18] MED LIST changes: +DIPH-435 PO; -DIPH25CA32 PO; +ISOVUE-300 61% 50ML VIAL As Ordered ONE; +LIDOCAINE 1% MDV 20ML VIAL As Ordered ONE; +TRIAMCINOLONE ACETONIDE SUSP 40MG/ML 1ML VIAL As Ordered ONE
== END ==
LOC: M PLAIMG 11:56 → M RAD 11:56
PROVIDERS: ATTEND Orthopaedic Surgery
DX: M16.12 Unilateral primary osteoarthritis, left hip (principal)
CPT/HCPCS: 20610; 76000; J3301; Q9967

== ENCOUNTER → 2022-07-06 | Outpatient (REF) | payer MEDICARE, OTHER ==
[~2022-07-06] MED LIST changes: -ISOVUE-300 61% 50ML VIAL As Ordered ONE; -LIDOCAINE 1% MDV 20ML VIAL As Ordered ONE; -TRIAMCINOLONE ACETONIDE SUSP 40MG/ML 1ML VIAL As Ordered ONE
[2022-07-06 12:29] LABS: PERCENT SATURATION 29.3 % (19.7-50.0)
[2022-07-06 12:32] LABS: FERRITIN 34.1 NG/ML (10.5-307.3)
== END ==
LOC: M LAB REF 11:31
PROVIDERS: ATTEND Internal Medicine
DX: D64.9 Anemia, unspecified (principal)

== ENCOUNTER → 2023-11-12 | Outpatient (CLI) | payer MEDICARE, OTHER ==
[~2023-11-12] MED LIST changes: -ASPI-161 PO; +ASPI-615 PO; +PROHANCE 279.3MG/ML 15ML VIAL As Ordered ONE; +PROHANCE 279.3MG/ML 5ML VIAL As Ordered ONE
== END ==
LOC: M RAD 12:54
PROVIDERS: ATTEND Internal Medicine
DX: D48.7 Neoplasm of uncertain behavior of other specified sites (principal); N28.1 Cyst of kidney, acquired; K86.2 Cyst of pancreas; I72.8 Aneurysm of other specified arteries
CPT/HCPCS: 74183; A9576

== ENCOUNTER → 2024-05-05 | Outpatient (CLI) | payer MEDICARE, OTHER ==
[~2024-05-05] MED LIST changes: -PROHANCE 279.3MG/ML 15ML VIAL As Ordered ONE; -PROHANCE 279.3MG/ML 5ML VIAL As Ordered ONE
[2024-05-05 10:01] LABS: BASO % 0.4 % (0.0-1.0); EOS # 0.7 10^3/uL (0.0-0.5); EOS % 10.2 % (0.0-3.0); HEMATOCRIT 37.2 % (42.0-52.0); HEMOGLOBIN 12.6 g/dl (13.5-17.5); LYMPH # 0.8 10^3/uL (1.5-5.0); LYMPH % 11.4 % (24.0-44.0); MEAN CORPUSCULAR HEMOGLOBIN 32.9 pg (27.0-33.0); MEAN CORPUSCULAR HGB CONC 33.9 g/dl (32.0-36.5); MEAN CORPUSCULAR VOLUME 97.1 fl (80.0-96.0); MONO # 0.8 10^3/uL (0.0-0.8); MONO % 11.2 % (2.0-8.0); NEUTROPHILS # 4.8 10^3/uL (1.5-8.5); NEUTROPHILS % 66.5 % (36.0-66.0); PLATELET COUNT, AUTOMATED 144 10^3/uL (150-450); RED BLOOD COUNT 3.83 10^6/uL (4.30-6.10); WHITE BLOOD COUNT 7.3 10^3/uL (4.0-10.0)
[2024-05-05 10:27] LABS: ALT/SGPT 20 U/L (7.0-40); AST/SGOT 23 U/L (<34); BLOOD UREA NITROGEN 20 MG/DL (9-23); CALCIUM LEVEL 9.2 MG/DL (8.3-10.6); CARBON DIOXIDE LEVEL 29 MMOL/L (20-31); CHLORIDE LEVEL 104 MMOL/L (98-107); CHOLESTEROL LEVEL 100 MG/DL (<200); CHOLESTEROL RISK RATIO 2.56 (<5); CREATININE FOR GFR 0.87 MG/DL (0.70-1.30); GLOMERULAR FILTRATION RATE > 60.0 (>35); GLUCOSE, FASTING 107 MG/DL (74-106); LDL CHOLESTEROL 45.2 MG/DL (<100); POTASSIUM SERUM 4.7 MMOL/L (3.5-5.1); SODIUM LEVEL 138 MMOL/L (136-145); TRIGLYCERIDES LEVEL 79 MG/DL (<150)
[2024-05-05 10:33] LABS: CPK CREATINE PHOSPHOKINASE 82 U/L (46-171)
== END ==
LOC: M LAB 09:01
DX: I35.9 Nonrheumatic aortic valve disorder, unspecified (principal); T82.03XD Leakage of heart valve prosthesis, subsequent encounter; E78.00 Pure hypercholesterolemia, unspecified

== ENCOUNTER → 2024-12-18 | Outpatient (REF) | payer MEDICARE, OTHER ==
[~2024-12-18] MED LIST changes: +ELIQ5TAB PO; +FURO20TA2 PO; +PROT1TAB2 PO; +SUCR1TA PO
[2024-12-18 15:48] LABS: IRON (FE) 35.0 UG/DL (65-175)
[2024-12-18 15:50] LABS: PERCENT SATURATION 11.3 % (19.7-50.0)
== END ==
LOC: M LAB REF 14:22
PROVIDERS: ATTEND Internal Medicine
DX: D64.9 Anemia, unspecified (principal)

== ENCOUNTER 2025-01-08 10:32 | Day surgery (SDC) | payer MEDICARE, OTHER ==
[~2025-01-08] VITALS: Ht 180.3 cm; Wt 113.4 kg
[~2025-01-08 10:32] MED LIST changes: +FERR324T2 PO
[2025-01-08] MEDS ORDERED: LIDOCAINE 2% 100 MG/5 ML SDV (FOR ANES.) As Ordered ONE (12:32)
[2025-01-08 12:34] VITALS: TEMP 97
[2025-01-08 12:52] VITALS: BP 128/79; O2SAT 97
== END 2025-01-08 13:01 | disposition home or self-care (01) ==
LOC: M OPP 10:32
PROVIDERS: ATTEND Internal Medicine Gastroenterology
DX: D50.9 Iron deficiency anemia, unspecified (principal); K31.819 Angiodysplasia of stomach and duodenum without bleeding; Z79.01 Long term (current) use of anticoagulants; Z79.899 Other long term (current) drug therapy; Z95.5 Presence of coronary angioplasty implant and graft; Z95.1 Presence of aortocoronary bypass graft

== ENCOUNTER → 2025-01-24 | Outpatient (REF) | payer MEDICARE, OTHER ==
[2025-01-24 12:57] LABS: IRON (FE) 54.0 UG/DL (65-175); PERCENT SATURATION 17.8 % (19.7-50.0)
== END ==
LOC: M LAB REF 11:56
PROVIDERS: ATTEND Internal Medicine
DX: D64.9 Anemia, unspecified (principal)

== ENCOUNTER → 2025-03-13 | Outpatient (REF) | payer MEDICARE, OTHER ==
[~2025-03-13] MED LIST changes: -EZET10TA21 PO; +EZET10TA57 PO
[2025-03-13 18:35] LABS: IRON (FE) 163.0 UG/DL (65-175)
[2025-03-13 18:36] LABS: PERCENT SATURATION 54.7 % (19.7-50.0)
== END ==
LOC: M LAB REF 17:48
PROVIDERS: ATTEND Internal Medicine
DX: D64.9 Anemia, unspecified (principal)